=== PATIENT | female | born 1995 | race Caucasian/White ===

== ENCOUNTER 2016-05-24 12:30 | Emergency (ER) | payer OTHER ==
[2016-05-24 14:03] LABS: HEMOGLOBIN 14.3 gm/dl (12.3-15.3); RED BLOOD COUNT 4.87 M/UL (4.00-5.10); WHITE BLOOD COUNT 7.8 K/UL (4.5-11.0)
[2016-05-24 14:22] LABS: BUN/CREATININE RATIO 14 (0-10)
== END 2016-05-24 16:04 | disposition home or self-care (01) ==
LOC: ER1 12:30
PROVIDERS: Nurse Practitioner Family
DX: N39.0 Urinary tract infection, site not specified (principal)
CPT/HCPCS: 36415; 80053; 81001; 84703; 85025; 87086; 99284; J1885; J2405

== ENCOUNTER 2020-05-02 18:42 | Outpatient (CLI) | payer OTHER ==
[~2020-05-02 18:42] MED LIST: COLACE 100MG C100 MG PO; FAMOTIDINE40 MG PO; IBUPROFEN600 MG PO; LORTAB 5-325 M1 EACH PO; PNV 29-1 TABLE1 EACH PO
== END 2020-05-02 20:23 | disposition home or self-care (01) ==
LOC: GENOP 18:42
DX: O99.891 Other specified diseases and conditions complicating pregnancy (principal); R10.30 Lower abdominal pain, unspecified; R42 Dizziness and giddiness; M54.5 Low back pain; Z3A.20 20 weeks gestation of pregnancy
CPT/HCPCS: 81001; G0463

== ENCOUNTER 2020-06-21 19:23 | Outpatient (CLI) | payer OTHER | END 2020-06-22 00:30 | disposition home or self-care (01) | LOC: GENOP 19:23 | DX: O26.892 Other specified pregnancy related conditions, second trimester (principal); Z3A.27 27 weeks gestation of pregnancy | CPT/HCPCS: 81001; 96360; 96361; 96365; 96367; J0696; J7121 ==

== ENCOUNTER 2021-10-15 04:09 | Emergency (ER) | payer OTHER ==
[2021-10-15 04:45] LABS: HEMOGLOBIN 12.8 gm/dl (12.3-15.3); RED BLOOD COUNT 5.67 M/UL (4.00-5.10)
[2021-10-15 05:07] LABS: BUN/CREATININE RATIO 15 (0-10)
[2021-10-15] MEDS ORDERED: PYRIDIUM100 MG PO (11:35)
[2021-10-15] MEDS ORDERED: CEFDINIR300 MG PO (11:35)
== END 2021-10-15 11:50 | disposition home or self-care (01) ==
LOC: ER1 04:09
DX: N39.0 Urinary tract infection, site not specified (principal); R11.2 Nausea with vomiting, unspecified; Z20.822 Contact with and (suspected) exposure to COVID-19; R16.1 Splenomegaly, not elsewhere classified; M62.08 Separation of muscle (nontraumatic), other site
CPT/HCPCS: 0240U; 80053; 81001; 83690; 84703; 85025; 96374; 96375; 99284; J1885; J2405; Q9967

== ENCOUNTER → 2021-11-07 | Outpatient (CLI) | payer OTHER ==
[~2021-11-07] MED LIST changes: +CEFDINIR300 MG PO; +KETOROLAC TROME10 MG PO; +PROTONIX20 MG PO; +PROVERA; +PYRIDIUM100 MG PO
[2021-11-07 08:50] LABS: HEMOGLOBIN 12.1 gm/dl (12.3-15.3); RED BLOOD COUNT 5.3 M/UL (4.00-5.10); WHITE BLOOD COUNT 7.5 K/UL (4.5-11.0)
== END ==
LOC: OPSV2 07:30
PROVIDERS: Obstetrics & Gynecology
DX: Z01.812 Encounter for preprocedural laboratory examination (principal)
CPT/HCPCS: 36415; 81001; 85025

== ENCOUNTER → 2021-11-15 | Day surgery (SDC) | payer OTHER ==
[~2021-11-15] MED LIST changes: +HYDROCODON-ACE1 EAC4 PO; +IBU600 MG PO
== END | disposition home or self-care (01) ==
LOC: OR 05:17
DX: N92.1 Excessive and frequent menstruation with irregular cycle (principal); E66.01 Morbid (severe) obesity due to excess calories; K21.9 Gastro-esophageal reflux disease without esophagitis; R68.82 Decreased libido; Z68.44 Body mass index [BMI] 60.0-69.9, adult
CPT/HCPCS: J1100; J1885; J2001; J2250; J2405; J2704; J2795; J3010